=== PATIENT | male | born 1970 | race Caucasian/White ===

== ENCOUNTER → 2017-03-15 12:26 | Outpatient (CLI) | payer MEDICAID ==
[2014-08-20 03:58] VITALS: BMI 38.5
[~2017-03-15 12:26] MED LIST: BAYER CHEWABLE81 MG PO; BENICAR40 MG PO; HYDRALAZINE HCL10 MG PO; PERCOCET 10/3251 TA1 PO; TIROSINT13 MCG PO; TOPROL XL25 MG PO
== END | disposition home or self-care (01) ==
LOC: D.MRI 12:26
DX: M23.612 Other spontaneous disruption of anterior cruciate ligament of left knee (principal)

== ENCOUNTER 2018-10-26 06:20 | Day surgery (SDC) | payer MEDICAID ==
[2018-10-21 09:24] LABS: HEMATOCRIT 44.7 % (42.0-54.0); HEMOGLOBIN 15.5 g/dL (13.5-17.5); MCH 29.9 pg (26.0-34.0); MCHC 34.7 g/dL (31.0-37.0); MCV 86.1 fL (80.0-100.0); RBC 5.19 10x6/uL (4.20-6.10); RDW 14.1 % (11.5-14.5); WBC 9.4 10x3/uL (4.8-10.8)
[2018-10-24 09:53] LABS: BASOPHILS 0.4 % (0-2); EOSINOPHILS 4.5 % (0-7); HEMATOCRIT 45.1 % (42.0-54.0); HEMOGLOBIN 15.7 g/dL (13.5-17.5); IMMATURE GRANULOCYTES 0.2 % (0-5); LYMPHOCYTES 28.2 % (15-50); MCH 29.6 pg (26.0-34.0); MCHC 34.8 g/dL (31.0-37.0); MCV 85.1 fL (80.0-100.0); MEAN PLATELET VOLUME 10.2 fL (7.4-10.4); MONOCYTES 8.6 % (2-11); NEUTROPHILS 58.1 % (40-80); PLATELET COUNT 174 10x3/uL (130-400); WBC 10.4 10x3/uL (4.8-10.8)
[2018-10-24 10:51] LABS: CALC OSMOLALITY 269 mosm/kg (275-300); CALCIUM 9.5 mg/dL (8.5-10.1); CARBON DIOXIDE 27.2 mmol/L (21.0-32.0); CHLORIDE - SERUM 102 mmol/L (98-107); CREATININE - SERUM 1.1 mg/dL (0.6-1.3); GLUCOSE 104 mg/dL (74-106); POTASSIUM - SERUM 4.2 mmol/L (3.5-5.1); SODIUM 135 mmol/L (136-145); UREA NITROGEN 13 mg/dL (7-18); eGFR NON AFRICAN AMERICAN 75 mL/min (90-120)
[~2018-10-26] VITALS: Ht 175.3 cm; Wt 113.6 kg
[~2018-10-26 06:20] MED LIST changes: +CYCLOBENZAPRINE10 MG PO; +TYLENOL W/CODEI1 TAB PO; +VOLTAREN75 MG PO; +WELLBUTRIN SR150 MG PO; +ZOLOFT100 MG PO
[2018-10-26 06:31] VITALS: BP 135/81; Ht 175.3 cm; Wt 113.6 kg
== END 2018-10-26 10:10 | disposition home or self-care (01) ==
LOC: D.OPS 06:20
PROVIDERS: Anesthesiology; ATTEND Orthopaedic Surgery
DX: G56.01 Carpal tunnel syndrome, right upper limb (principal)

== ENCOUNTER 2018-11-16 05:20 | Day surgery (SDC) | payer MEDICAID ==
[2018-11-11 09:26] LABS: BASOPHILS 0.6 % (0-2); EOSINOPHILS 3.5 % (0-7); HEMATOCRIT 46.3 % (42.0-54.0); HEMOGLOBIN 16.3 g/dL (13.5-17.5); IMMATURE GRANULOCYTES 0.2 % (0-5); LYMPHOCYTES 25.9 % (15-50); MCH 29.6 pg (26.0-34.0); MCHC 35.2 g/dL (31.0-37.0); MCV 84.2 fL (80.0-100.0); MEAN PLATELET VOLUME 10.1 fL (7.4-10.4); MONOCYTES 8.2 % (2-11); NEUTROPHILS 61.6 % (40-80); PLATELET COUNT 176 10x3/uL (130-400); RDW 13.6 % (11.5-14.5); WBC 8.3 10x3/uL (4.8-10.8)
[2018-11-11 09:33] LABS: CALC OSMOLALITY 281 mosm/kg (275-300); CALCIUM 8.9 mg/dL (8.5-10.1); CARBON DIOXIDE 29.9 mmol/L (21.0-32.0); CHLORIDE - SERUM 103 mmol/L (98-107); CREATININE - SERUM 1.1 mg/dL (0.6-1.3); GLUCOSE 107 mg/dL (74-106); POTASSIUM - SERUM 4.3 mmol/L (3.5-5.1); SODIUM 141 mmol/L (136-145); UREA NITROGEN 14 mg/dL (7-18); eGFR NON AFRICAN AMERICAN 75 mL/min (90-120)
[~2018-11-16] VITALS: Ht 175.3 cm; Wt 115.9 kg
[2018-11-16 06:38] VITALS: BP 132/75; Ht 175.3 cm; Wt 115.9 kg
--- NOTE | 2018-11-16 08:39 | NUR ---
0828-REC'D FROM RR. AWAKE AND ALERT,DENIES PAIN. IV PATENT TO LEFT HAND AT [facility]. DRESSING TO LEFT HAND CDI.VSS. SPOUSE AT BEDSIDE, CL IN EASY REACH.
--- NOTE | 2018-11-16 08:52 | NUR ---
0845-FULL LIQUID TRAY TO MACIEJ,.VSS.DENIES COMPLAINTS.
--- NOTE | 2018-11-16 09:30 | NUR ---
929-DISCHARGE CRITERIA MET. REMOVED IV FROM LEFT HAND WITH CATH INTACT,DISPOSED INTO SHARPS CONTAINER. COVERED SITE WITH BANDAID. REVIEWED DISCHARGE PAPERWORK WITH PT AND SPOUSE,VERBALIZED UNDERSTANDING WITHOUT QUESTIONS OR CONCERNS. ESCORTED OUT VIA W/C WITH SPOUSE TO DRIVE HOME.
== END 2018-11-16 09:30 | disposition home or self-care (01) ==
LOC: D.OPS 05:20 → D.PAN 07:30 → D.OPS 07:30
PROVIDERS: ATTEND Orthopaedic Surgery
DX: G56.02 Carpal tunnel syndrome, left upper limb (principal)